=== PATIENT | male | born 1985 | race Caucasian/White ===

== ENCOUNTER 2017-06-28 10:31 | Outpatient (CLI) | payer MEDICARE, MEDICAID | END 2017-06-28 10:32 | disposition home or self-care (01) | LOC: BICRAD 10:31 | PROVIDERS: ATTEND Family Medicine | DX: M54.5 Low back pain (principal); M47.896 Other spondylosis, lumbar region; F17.200 Nicotine dependence, unspecified, uncomplicated | CPT/HCPCS: 71046; 72072; 72100 ==

== ENCOUNTER 2017-09-18 07:18 | Emergency (ER) | payer MEDICARE, MEDICAID ==
[2017-09-18] MEDS ORDERED: Adacel (T-DAP) 0.5 ML VIAL ONE (08:33)
== END 2017-09-18 08:38 | disposition left against medical advice (07) ==
LOC: ERS 07:18
DX: S61.256A Open bite of right little finger without damage to nail, initial encounter (principal); F31.9 Bipolar disorder, unspecified; F41.9 Anxiety disorder, unspecified; F17.290 Nicotine dependence, other tobacco product, uncomplicated; Z79.899 Other long term (current) drug therapy; W64.XXXA Exposure to other animate mechanical forces, initial encounter
CPT/HCPCS: 90715; 99283

== ENCOUNTER 2019-08-30 18:20 | Emergency (ER) | payer MEDICAID, MEDICARE, OTHER | END 2019-08-30 18:49 | disposition home or self-care (01) | LOC: ERS 18:20 | DX: R00.0 Tachycardia, unspecified (principal); F41.9 Anxiety disorder, unspecified; F31.9 Bipolar disorder, unspecified; Z79.899 Other long term (current) drug therapy | CPT/HCPCS: 99284 ==